=== PATIENT | female | born 1990 | race Caucasian/White ===

== ENCOUNTER 2019-11-12 09:54 | Outpatient (CLI) | payer MEDICAID ==
[2019-11-12 10:43] LABS: APPEARANCE,URINE SLIGHTLY-CLOUDY; BILIRUBIN,URINE NEGATIVE (NEGATIVE); COLOR,URINE YELLOW; GLUCOSE, URINE NEGATIVE (NEGATIVE); KETONES,URINE NEGATIVE (NEGATIVE); LEUKOCYTE ESTERASE,URINE MODERATE (NEGATIVE); NITRITE,URINE NEGATIVE (NEGATIVE); PROTEIN,URINE 30 mg/dL (NEGATIVE); URINE SPECIFIC GRAVITY 1.018; UROBILINOGEN,URINE NEGATIVE mg/dL (<2.0)
[2019-11-12 11:25] LABS: ABSOLUTE EOSINOPHILS # (AUTO) 0.1 10^3/uL (0.0-0.6); ABSOLUTE MONOCYTES (AUTO) 0.8 10^3/uL (0.1-1.4); ABSOLUTE NEUT (AUTO) 6.5 10^3/uL (1.7-8.2); BASOPHILS % (AUTO) 0.2 % (0-2); EOSINOPHILS % (AUTO) 0.8 % (0-6); HEMATOCRIT 30.9 % (36.0-47.0); HEMOGLOBIN 10.4 g/dL (12.0-15.5); LYMPHOCYTES % (AUTO) 12.4 % (13-45); MEAN CORPUSCULAR HEMOGLOBIN 29.6 pg (27.0-33.4); MEAN CORPUSCULAR HGB CONC 33.6 g/dL (32.0-36.0); MEAN CORPUSCULAR VOLUME 88 fl (80-97); MONOCYTES % (AUTO) 9.6 % (3-13); PLATELET COUNT 226 10^3/uL (150-450); RED BLOOD COUNT 3.52 10^6/uL (3.72-5.28); RED CELL DISTRIBUTION WIDTH 13.6 % (11.5-14.0); TOTAL CELLS COUNTED % (AUTO) 100 %; WHITE BLOOD COUNT 8.4 10^3/uL (4.0-10.5)
[2019-11-12 11:30] LABS: UR PRO/CREAT RATIO RESULT 0.1 mg/mg (0.0-0.2); URINE CREATININE 193.8 mg/dL (16-327); URINE PROTEIN 14.8 mg/dL (<12)
[2019-11-12 11:44] LABS: ALBUMIN 2.7 g/dL (3.5-5.0); ALKALINE PHOSPHATASE 95 U/L (38-126); ANION GAP 6 (5-19); ASPARTATE AMINO TRANSFERASE 17 U/L (14-36); BILIRUBIN,TOTAL 0.4 mg/dL (0.2-1.3); BLOOD UREA NITROGEN 5 mg/dL (7-20); CALCIUM 8.4 mg/dL (8.4-10.2); CARBON DIOXIDE 21 mmol/L (22-30); CHLORIDE 107 mmol/L (98-107); GLUCOSE 91 mg/dL (75-110); POTASSIUM 3.9 mmol/L (3.6-5.0); TOTAL PROTEIN 5.7 g/dL (6.3-8.2); URIC ACID 4.1 mg/dL (2.5-6.2)
[2019-11-12] MEDS ORDERED: LABETALOL HCL 200 MG TABLET PO ONE (11:45)
[2019-11-12] MEDS ORDERED: LABETALOL HCL 200 MG TABLET ONE (11:59)
--- NOTE | 2019-11-12 12:15 | Non Stress Test Report ---
Non Stress Test Datetime Report Generated by CPN: 11/12/2019 12:14 DEMOGRAPHIC EGA NST: 36.2 VITAL SIGNS Temperature - NST: 98.7 Pulse - NST: 94 RESP - NST: 18 NBPSYS NST: 149 NBPDIA NST: 90 MONITORING Monitor Explained: Monitor Explained; Test Explained; Patient Verbalized Understanding Time on Monitor: 11/12/2019 10:24 Time off Monitor: 11/12/2019 11:43 NST Duration: 79 NST INTERVENTIONS NST Interventions: PO Hydration Physician Notified NST: Dr. Mann BABY A: [id number] BABY A Movement : Present Contraction Frequency : 0 FHR Baseline : 145 (Annotations: Data stored by N on behalf of user) Accelerations : 15X15 Decelerations : None Variability : Moderate 6-25bpm NST Review: Meets Criteria for Reactive NST NST Review and Verified By : Linda Jim RN NST Results: Reactive NST COMMENTS NST Comments: Dr. Mann on unit and reviewed strip. NST REPORT Report Trigger: Send Report
[2019-11-12] MEDS ORDERED: HYDRALAZINE HCL INJ/PF 20 MG/1 ML SDV IV ONE (12:24)
[2019-11-12] MEDS ORDERED: HYDRALAZINE HCL INJ/PF 20 MG/1 ML SDV ONE (12:32)
[2019-11-12 13:56] LABS: URINE AMPHETAMINES SCREEN NEGATIVE; URINE BARBITURATES SCREEN NEGATIVE; URINE BENZODIAZEPINES SCREEN NEGATIVE; URINE COCAINE SCREEN NEGATIVE; URINE MARIJUANA (THC) SCREEN NEGATIVE; URINE METHADONE SCREEN NEGATIVE; URINE PHENCYCLIDINE SCREEN NEGATIVE
== END 2019-11-12 13:23 | disposition home or self-care (01) ==
LOC: LC 09:54
PROVIDERS: ATTEND Obstetrics & Gynecology
DX: O24.419 Gestational diabetes mellitus in pregnancy, unspecified control (principal); Z3A.36 36 weeks gestation of pregnancy
CPT/HCPCS: 59025; 36415; 83615; 84156; 84550; 82570; 85025; 80053; 81001; 80307; J0360; J3490

== ENCOUNTER 2019-11-14 14:36 | Outpatient (CLI) | payer MEDICAID ==
[2019-11-14 15:07] LABS: APPEARANCE,URINE CLEAR; BILIRUBIN,URINE NEGATIVE (NEGATIVE); COLOR,URINE STRAW; GLUCOSE, URINE NEGATIVE (NEGATIVE); KETONES,URINE NEGATIVE (NEGATIVE); LEUKOCYTE ESTERASE,URINE MODERATE (NEGATIVE); NITRITE,URINE NEGATIVE (NEGATIVE); PROTEIN,URINE NEGATIVE (NEGATIVE); URINE SPECIFIC GRAVITY 1.002; UROBILINOGEN,URINE NEGATIVE mg/dL (<2.0)
[2019-11-14 15:25] LABS: ABSOLUTE LYMPHOCYTES (AUTO) 1.1 10^3/uL (0.5-4.7); ABSOLUTE MONOCYTES (AUTO) 0.7 10^3/uL (0.1-1.4); ABSOLUTE NEUT (AUTO) 6.3 10^3/uL (1.7-8.2); BASOPHILS % (AUTO) 0.3 % (0-2); EOSINOPHILS % (AUTO) 0.6 % (0-6); HEMATOCRIT 31.2 % (36.0-47.0); HEMOGLOBIN 10.4 g/dL (12.0-15.5); LYMPHOCYTES % (AUTO) 13.8 % (13-45); MEAN CORPUSCULAR HEMOGLOBIN 29.4 pg (27.0-33.4); MEAN CORPUSCULAR HGB CONC 33.4 g/dL (32.0-36.0); MEAN CORPUSCULAR VOLUME 88 fl (80-97); PLATELET COUNT 230 10^3/uL (150-450); RED BLOOD COUNT 3.55 10^6/uL (3.72-5.28); RED CELL DISTRIBUTION WIDTH 13.5 % (11.5-14.0); SEGMENTED NEUTROPHILS % (AUTO) 77.3 % (42-78); TOTAL CELLS COUNTED % (AUTO) 100 %; WHITE BLOOD COUNT 8.2 10^3/uL (4.0-10.5)
[2019-11-14 15:39] LABS: URINE AMPHETAMINES SCREEN NEGATIVE; URINE BARBITURATES SCREEN NEGATIVE; URINE BENZODIAZEPINES SCREEN NEGATIVE; URINE COCAINE SCREEN NEGATIVE; URINE MARIJUANA (THC) SCREEN NEGATIVE; URINE METHADONE SCREEN NEGATIVE; URINE PHENCYCLIDINE SCREEN NEGATIVE
[2019-11-14 15:43] LABS: UR PRO/CREAT RATIO RESULT 1.1 mg/mg (0.0-0.2); URINE CREATININE 14.1 mg/dL (16-327); URINE PROTEIN 14.9 mg/dL (<12)
[2019-11-14 15:45] LABS: ALBUMIN 2.9 g/dL (3.5-5.0); ALKALINE PHOSPHATASE 97 U/L (38-126); ANION GAP 5 (5-19); ASPARTATE AMINO TRANSFERASE 18 U/L (14-36); BILIRUBIN,TOTAL 0.7 mg/dL (0.2-1.3); BLOOD UREA NITROGEN 5 mg/dL (7-20); CALCIUM 8.6 mg/dL (8.4-10.2); CARBON DIOXIDE 22 mmol/L (22-30); CHLORIDE 105 mmol/L (98-107); GLUCOSE 115 mg/dL (75-110); POTASSIUM 3.9 mmol/L (3.6-5.0); URIC ACID 4.4 mg/dL (2.5-6.2)
--- NOTE | 2019-11-14 16:30 | Non Stress Test Report ---
Non Stress Test Datetime Report Generated by CPN: 11/14/2019 16:29 DEMOGRAPHIC EGA NST: 36.4 VITAL SIGNS Temperature - NST: 98.3 Pulse - NST: 100 RESP - NST: 18 NBPSYS NST: 140 NBPDIA NST: 93 MONITORING Monitor Explained: Monitor Explained; Test Explained; Patient Verbalized Understanding Time on Monitor: 11/14/2019 15:00 Time off Monitor: 11/14/2019 15:34 NST Duration: 34 NST INTERVENTIONS NST Interventions: PO Hydration; Reposition Patient Physician Notified NST: David Muniz, CNMoris BABY A: [id number] BABY A Movement : Present Contraction Frequency : 0 FHR Baseline : 130 Accelerations : 15X15 Decelerations : None Variability : Moderate 6-25bpm NST Review: Meets Criteria for Reactive NST NST Review and Verified By : Linda Jim RN NST Results: Reactive NST REPORT Report Trigger: Send Report
== END 2019-11-14 16:17 | disposition home or self-care (01) ==
LOC: LC 14:36
PROVIDERS: ATTEND Obstetrics & Gynecology Gynecology
DX: O13.3 Gestational [pregnancy-induced] hypertension without significant proteinuria, third trimester (principal); Z3A.36 36 weeks gestation of pregnancy
CPT/HCPCS: 36415; 59025; 80053; 80307; 81001; 82570; 83615; 84156; 84550; 85025

== ENCOUNTER 2019-11-16 13:56 | Outpatient (CLI) | payer MEDICAID ==
--- NOTE | 2019-11-16 14:48 | Non Stress Test Report ---
Non Stress Test Datetime Report Generated by CPN: 11/16/2019 14:48 DEMOGRAPHIC Test Number: 3 EGA NST: 36.6 VITAL SIGNS Temperature - NST: 98.6 Pulse - NST: 97 RESP - NST: 15 NBPSYS NST: 141 NBPDIA NST: 88 MONITORING Monitor Explained: Monitor Explained; Test Explained; Patient Verbalized Understanding Time on Monitor: 11/16/2019 14:11 Time off Monitor: 11/16/2019 14:42 NST Duration: 31 NST INTERVENTIONS NST Interventions: PO Hydration Physician Notified NST: Dr. Mann BABY A: [id number] BABY A Movement : Present Contraction Frequency : none FHR Baseline : 140 Accelerations : 15X15 Decelerations : None Variability : Moderate 6-25bpm NST Review: Meets Criteria for Reactive NST NST Review and Verified By : TMartin,RN NST Results: Reactive NST COMMENTS NST Comments: MD on unit reviewing FHT strip NST REPORT Report Trigger: Send Report
== END 2019-11-16 15:09 | disposition home or self-care (01) ==
LOC: LC 13:56
PROVIDERS: ATTEND Obstetrics & Gynecology
DX: O13.3 Gestational [pregnancy-induced] hypertension without significant proteinuria, third trimester (principal); O24.410 Gestational diabetes mellitus in pregnancy, diet controlled; Z3A.36 36 weeks gestation of pregnancy
CPT/HCPCS: 59025

== ENCOUNTER 2019-11-18 05:11 | Inpatient (IN) | payer MEDICAID ==
[2019-11-13 11:20] LABS: ABSOLUTE EOSINOPHILS # (AUTO) 0.1 10^3/uL (0.0-0.6); ABSOLUTE LYMPHOCYTES (AUTO) 0.9 10^3/uL (0.5-4.7); ABSOLUTE MONOCYTES (AUTO) 0.7 10^3/uL (0.1-1.4); ABSOLUTE NEUT (AUTO) 5.7 10^3/uL (1.7-8.2); BASOPHILS % (AUTO) 0.4 % (0-2); HEMATOCRIT 32.2 % (36.0-47.0); HEMOGLOBIN 10.8 g/dL (12.0-15.5); LYMPHOCYTES % (AUTO) 12.7 % (13-45); MEAN CORPUSCULAR HEMOGLOBIN 29.2 pg (27.0-33.4); MEAN CORPUSCULAR HGB CONC 33.6 g/dL (32.0-36.0); MEAN CORPUSCULAR VOLUME 87 fl (80-97); MONOCYTES % (AUTO) 9.8 % (3-13); PLATELET COUNT 246 10^3/uL (150-450); RED CELL DISTRIBUTION WIDTH 13.3 % (11.5-14.0); SEGMENTED NEUTROPHILS % (AUTO) 76.1 % (42-78); TOTAL CELLS COUNTED % (AUTO) 100 %; WHITE BLOOD COUNT 7.5 10^3/uL (4.0-10.5)
[2019-11-13 11:20] LABS: APPEARANCE,URINE CLOUDY; BILIRUBIN,URINE NEGATIVE (NEGATIVE); COLOR,URINE YELLOW; GLUCOSE, URINE NEGATIVE (NEGATIVE); KETONES,URINE NEGATIVE (NEGATIVE); LEUKOCYTE ESTERASE,URINE LARGE (NEGATIVE); NITRITE,URINE NEGATIVE (NEGATIVE); PROTEIN,URINE 30 mg/dL (NEGATIVE); URINE SPECIFIC GRAVITY 1.013; UROBILINOGEN,URINE NEGATIVE mg/dL (<2.0)
[2019-11-13 11:37] LABS: URINE AMPHETAMINES SCREEN NEGATIVE; URINE BARBITURATES SCREEN NEGATIVE; URINE BENZODIAZEPINES SCREEN NEGATIVE; URINE COCAINE SCREEN NEGATIVE; URINE MARIJUANA (THC) SCREEN NEGATIVE; URINE METHADONE SCREEN NEGATIVE; URINE PHENCYCLIDINE SCREEN NEGATIVE
[~2019-11-18 05:11] MED LIST: CEFAZOLIN 2 GM/D5W RTU 2 GM/50 ML RTUPB IV PRN
[2019-11-18] MEDS ORDERED: RINGERS SOLUTION,LACTATED 1,000 ML IV ONE (06:00)
[2019-11-18] MEDS ORDERED: OXYTOCIN 10 UNIT/ML VIAL ONE ×2 (07:31→08:24)
[2019-11-18] MEDS ORDERED: PHENYLEPHRINE HCL INJ/PF 10 MG/1 ML SDV ONE (07:31)
[2019-11-18] MEDS ORDERED: GLYCOPYRROLATE INJ 0.4 MG/2 ML VIAL ONE (07:31)
[2019-11-18] MEDS ORDERED: KETOROLAC TROMETHAMINE 60 MG/2 ML SDV ONE (07:31)
[2019-11-18] MEDS ORDERED: MIDAZOLAM 2 MG/2 ML INJ ONE (07:31)
[2019-11-18] MEDS ORDERED: FENTANYL CITRATE INJ/PF 100 MCG/2 ML AMPUL ONE (07:31)
[2019-11-18] MEDS ORDERED: OXYTOCIN/0.9 % SODIUM CHLORIDE 30 UNIT/500 ML RTUINJ ONE (07:32)
[2019-11-18] MEDS ORDERED: ACETAMINOPHEN 1,000 MG/100 ML RTUPB IV ONE (07:32)
[2019-11-18] MEDS ORDERED: ONDANSETRON HCL INJ/PF 4 MG/2 ML SDV ONE (07:32)
[2019-11-18] MEDS ORDERED: HYDRALAZINE HCL INJ/PF 20 MG/1 ML SDV IV ONE ×2 (08:00→10:01)
[2019-11-18] MEDS ORDERED: MISOPROSTOL 0.2 MG TABLET ONE (08:24)
[2019-11-18] MEDS ORDERED: PROMETHAZINE HCL INJ 25 MG/1 ML VIAL IV PRN ×3 (08:28→09:24)
[2019-11-18] MEDS ORDERED: FENTANYL CITRATE INJ/PF 100 MCG/2 ML AMPUL IV PRN ×3 (08:28)
[2019-11-18] MEDS ORDERED: DIPHENHYDRAMINE HCL 50 MG/ML VIAL IV PRN (08:28)
[2019-11-18] MEDS ORDERED: OXYCODONE-ACETAMINOPHEN 5-325 MG TABLET PO PRN ×3 (08:28→09:24)
[2019-11-18] MEDS ORDERED: MORPHINE SULFATE 10 MG/ML INJ IV PRN (08:28)
[2019-11-18] MEDS ORDERED: BUPIVACAINE HCL 0.25 % INJ/PF (2.5 MG/1 ML) 30 ML VIAL ONE (08:50)
[2019-11-18] MEDS ORDERED: RINGERS SOLUTION,LACTATED 1,000 ML IV PRN (09:24)
[2019-11-18] MEDS ORDERED: OXYTOCIN/0.9 % SODIUM CHLORIDE 30 UNIT/500 ML RTUINJ IV PRN (09:24)
[2019-11-18] MEDS ORDERED: MEASLES,MUMPS&RUBELLA VACC/PF 0.5 ML VIAL SUBCUT PRN (09:24)
[2019-11-18] MEDS ORDERED: DIPH/PERTUSS(ACELL)/TETANUS VAC/PF 0.5 ML SYR (>=10YO) IM PRN (09:24)
[2019-11-18] MEDS ORDERED: ACETAMINOPHEN 1,000 MG/100 ML RTUPB IV PRN (09:24)
[2019-11-18] MEDS ORDERED: ACETAMINOPHEN 325 MG TABLET PO PRN (09:24)
[2019-11-18] MEDS ORDERED: HYDROMORPHONE HCL INJ/PF 2 MG/ML AMPULE IV PRN (09:24)
[2019-11-18] MEDS ORDERED: SIMETHICONE 80 MG TAB.CHEW PO PRN (09:24)
[2019-11-18] MEDS ORDERED: MEPERIDINE HCL/PF INJ 25 MG/1 ML DISP.SYRIN ONE (09:27)
[2019-11-18] MEDS: MEPERIDINE HCL/PF INJ 25 MG/1 ML DISP.SYRIN IV PRN ×2 (09:36→09:54)
--- NOTE | 2019-11-18 09:44 | Brief Operative Note ---
BRIEF OPERATIVE REPORT DATE OF SURGERY: 11/18/19 TIME OF SURGERY: 08:00 PREOPERATIVE DIAGNOSIS: H/o section, CHTN on medication with superimposed preE, hypertrophic scar, GDM. Limited care. POSTOPERATIVE DIAGNOSIS: RANDY - delivered SURGEON: KESHAV SHELDON FINDINGS: Apgars 8/9, weight 7#4oz, time of 0820. normal bilateral tubes and ovaries, normal uterus but boggy after delivery. IV pitocin doubled and then cytotec 1000mcg given. IVF 600ml, UOP 200ml, EBL 600ml, QBL 685ml COMPLICATIONS: mild uterine atony responsive to medications ESTIMATED BLOOD LOSS: 600 TISSUE REMOVED OR ALTERED: placenta and cord not sent to pathology TECHNICAL PROCEDURE: Repeat section, Scar revision.
[2019-11-18] MEDS ORDERED: LABETALOL HCL 200 MG TABLET PO SCH (10:00)
[2019-11-18] MEDS ORDERED: LABETALOL HCL 200 MG TABLET ONE (10:01)
[2019-11-18] MEDS ORDERED: HYDRALAZINE HCL INJ/PF 20 MG/1 ML SDV ONE (10:01)
[2019-11-18] MEDS: DOCUSATE SODIUM 100 MG CAPSULE PO SCH ×2 (11:41→17:19)
[2019-11-18] MEDS: PRENATAL VITAMIN W DHA CAPSULE PO SCH (11:41)
[2019-11-18] MEDS ORDERED: KETOROLAC TROMETHAMINE INJ/PF 30 MG/1 ML SDV IV SCH (14:00)
[2019-11-18] MEDS ORDERED: LABETALOL HCL 200 MG TABLET PO ONE (15:21)
[2019-11-18] MEDS: KETOROLAC TROMETHAMINE INJ/PF 30 MG/1 ML SDV IV SCH (17:19)
[2019-11-18] MEDS: OXYCODONE-ACETAMINOPHEN 5-325 MG TABLET PO PRN (19:22)
[2019-11-18] MEDS: LABETALOL HCL 200 MG TABLET PO SCH (21:59)
[2019-11-19] MEDS: KETOROLAC TROMETHAMINE INJ/PF 30 MG/1 ML SDV IV SCH (01:06)
[2019-11-19] MEDS: OXYCODONE-ACETAMINOPHEN 5-325 MG TABLET PO PRN ×3 (04:14→18:48)
[2019-11-19] MEDS: LABETALOL HCL 200 MG TABLET PO SCH ×3 (05:00→21:15)
--- NOTE | 2019-11-19 08:44 | PDOC PROGRESS REPORT ---
Subjective-OB Progress Note for:: 11/05/19 Subjective: HAving afterbirth pains, incisional pain moderate, hsb and baby at BS crying, eating, feeling gas, OOB to BR, Physical Exam (OB) Vital Signs: Temp Pulse Resp BP Pulse Ox 98.2 F 96 16 153/87 H 99 11/19/19 07:15 11/19/19 07:15 11/19/19 07:15 11/19/19 07:15 11/19/19 07:15 Intake & Output 11/18/19 11/19/19 11/20/19 06:59 06:59 06:59 Intake Total 1700 Output Total 1425 Balance 275 Weight 217 kg - PIH/Pre-Eclampsia DTR's: 2 + Clonus: Negative Headache: Absent Epigastric Pain: No Visual Changes: No - Dressing Removed: No Incision: Dressing - Lochia Lochia Amount: Scant < 10 ml Lochia Color: Rubra/Red - Abdomen Description: Soft, Round Hernia Present: No Fundal Description: Firm, Midline Fundal Height: u/u - u/2 Assessment and Plan(PN) - Assessment and Plan (1) delivery delivered Is this a current diagnosis for this admission?: Yes - Time Spent with Patient Time with patient: Less than 15 minutes Medications reviewed and adjusted accordingly: Yes - Disposition Anticipated Discharge: Home Within: within 24 hours
[2019-11-19 08:55] LABS: HEMATOCRIT 25.5 % (36.0-47.0); HEMOGLOBIN 8.6 g/dL (12.0-15.5); MEAN CORPUSCULAR HEMOGLOBIN 29.2 pg (27.0-33.4); MEAN CORPUSCULAR HGB CONC 33.9 g/dL (32.0-36.0); MEAN CORPUSCULAR VOLUME 86 fl (80-97); PLATELET COUNT 213 10^3/uL (150-450); RED BLOOD COUNT 2.96 10^6/uL (3.72-5.28); RED CELL DISTRIBUTION WIDTH 13.4 % (11.5-14.0); WHITE BLOOD COUNT 10.3 10^3/uL (4.0-10.5)
[2019-11-19] MEDS: IBUPROFEN 800 MG TABLET PO SCH ×3 (09:27→21:16)
[2019-11-19] MEDS: PRENATAL VITAMIN W DHA CAPSULE PO SCH (09:27)
[2019-11-19] MEDS: DOCUSATE SODIUM 100 MG CAPSULE PO SCH ×2 (09:28→18:45)
--- NOTE | 2019-11-19 09:47 | Operative Report ---
Operative Report DATE OF SURGERY: 11/18/19 PREOPERATIVE DIAGNOSIS: H/o section, CHTN on medication with superimpo sed preE, hypertrophic scar, GDM. Limited care, 37.1ega POSTOPERATIVE DIAGNOSIS: RNADY - delivered OPERATION: Repeat section, scar revision SURGEON: KESHAV SHELDON ANESTHESIA: Spinal TISSUE REMOVED OR ALTERED: placenta and cord not sent to pathology COMPLICATIONS: mild uterine atony responsive to medications ESTIMATED BLOOD LOSS: 600 QUANTITATIVE BLOOD LOSS: 685 INTRAOPERATIVE FINDINGS: Apgars 8/9, weight 7#4oz, time of 0820. normal bilateral tubes and ovaries, normal uterus but boggy after delivery. IV pitocin doubled and then cytotec 1000mcg given. IVF 600ml, UOP 200ml, EBL 600ml, QBL 685ml PROCEDURE: Anesthesia provider: [Jacky Tristan CRNA, Dr Medley] Urine output: [200ml] IV fluids: [600ml] Indications: [29yo at 37+1ega presents for scheduled Repeat section. She has limited PNC and newly diagnosed GDM. Her was complicated by CHTN with superimposed PreE. She desires to proceed with planned repeat section. The risks, benefits, alternatives were reviewed and she desires to proceed with planned procedure.] Procedure: The patient was taken to the operating room where spinal anesthesia was obtained and found to be adequate. She was then prepped and draped in the normal sterile fashion and placed in the dorsal supine position with a leftward tilt. A Pfannenstiel skin incision was then made and carried through to the underlying layers of the fascia with the scalpel. The fascia was incised in the midline and the incision extended laterally with the Pope scissors. The superior aspect of the fascial incision was then grasped with Emerald clamps elevated and the underlying rectus muscles dissected off [bluntly]. Attention was then turned to the inferior aspect of the fascial incision which in a similar fashion was grasped, tented up with Emerald clamps, and the rectus muscles dissected off [bluntly]. The rectus muscles were then in the midline and the peritoneum at the amount identified and entered [bluntly]. The peritoneal incision was then extended superiorly and inferiorly with good visualization of the bladder. The bladder blade was inserted and the vesicouterine peritoneum identified grasped with Montenegrin pickups and entered sharply with the Metzenbaum scissors. This incision was then extended laterally with the Metzenbaum scissors and a bladder flap created digitally. The bladder blade was then reinserted and the lower uterine segment incised in a transverse fashion with the scalpel. The uterine incision was then extended bluntly. The bladder blade was removed and the infant's head was delivered from cephalic presentation atraumatically. The nose and mouth were suctioned and the cord doubly clamped and cut. And the was handed off to waiting pediatricians. The placenta was then delivered spontaneously and the uterus exteriorized and cleared of all clots and debris. The uterine incision was then repaired with 1- 0 Vicryl in a running locked fashion. A second layer of the same suture was used to obtain hemostasis via imbrication of the initial layer. The bladder flap was then repaired with 3-0 chromic in a running fashion. The uterus was returned to the patient's abdomen. The gutters were cleared of all clots and debris. All operative sites were noted to be hemostatic after surgicel application. The fascia was reapproximated with 0 Vicryl in a running fashion from each lateral edge to the midline. The skin was closed with 3-0 Monocryl in a running subcuticular fashion with overlying Dermabond for additional dressing as well as wound closure. The patient tolerated the procedure well. Sponge lap needle and instrument counts are correct times 2. 2 g of Ancef were given prior to skin incision. The patient was taken to the recovery area awake and in stable condition.
[2019-11-19] MEDS ORDERED: IBUPROFEN 800 MG TABLET PO SCH (15:00)
[2019-11-20] MEDS: IBUPROFEN 800 MG TABLET PO SCH ×3 (02:32→14:57)
[2019-11-20] MEDS: LABETALOL HCL 200 MG TABLET PO SCH ×2 (06:11→13:03)
[2019-11-20] MEDS: OXYCODONE-ACETAMINOPHEN 5-325 MG TABLET PO PRN ×2 (06:11→13:03)
[2019-11-20] MEDS: DOCUSATE SODIUM 100 MG CAPSULE PO SCH (09:14)
[2019-11-20] MEDS: PRENATAL VITAMIN W DHA CAPSULE PO SCH (09:14)
--- NOTE | 2019-11-20 13:25 | PDOC DISCHARGE SUMMARY ---
Impression - Admit/DC Date/PCP Admission Date/Primary Care Provider: 11/18/19 05:11 CATALINA MAKI MD Discharge Date: 11/20/19 - Discharge Diagnosis (1) delivery delivered Is this a current diagnosis for this admission?: Yes (2) Hypertension affecting , delivered, current hospitalization Is this a current diagnosis for this admission?: Yes - Additional Information Resuscitation Status: Full Code Discharge Diet: Regular Discharge Activity: Balance Activity w/Rest, No Lifting Over 10 Pounds, No Lifting/Push/Pulling, Pelvic Rest, No tub bath Referrals: KESHAV SHELDON MD [ACTIVE STAFF] - 11/20/19 9:00 am (CALL THE OFFICE OF ANY QUESTIONS OR CONCERNS.) Prescriptions: Oxycodone HCl/Acetaminophen [Percocet 5-325 mg Tablet] 1 tab PO Q4HP PRN #30 tablet PRN Reason: For Pain Scale 3-4 Ibuprofen [Motrin 800 mg Tablet] 800 mg PO Q8HP PRN #60 tablet PRN Reason: Labetalol HCl [Normodyne 200 mg Tablet] 200 mg PO Q8 #90 tablet Home Medications: Pnv No.103/Folic/Om3s/Fish Oil [ Gummies] 1 tab PO DAILY 11/12/19 Ibuprofen [Motrin 800 mg Tablet] 800 mg PO Q8HP PRN #60 tablet 11/20/19 Labetalol HCl [Normodyne 200 mg Tablet] 200 mg PO Q8 #90 tablet 11/20/19 Oxycodone HCl/Acetaminophen [Percocet 5-325 mg Tablet] 1 tab PO Q4HP PRN #30 tablet 11/20/19 HPI Reason(s) for Admission: Ceasarean Section-Repeat Procedures: None Intrapartum Procedure(s): : Low Cervical, Transverse Results Laboratory Results: WBC 10.3 10^3/uL (4.0-10.5) 11/19/19 08:30 RBC 2.96 10^6/uL (3.72-5.28) L 11/19/19 08:30 Hgb 8.6 g/dL (12.0-15.5) L 11/19/19 08:30 Hct 25.5 % (36.0-47.0) L 11/19/19 08:30 MCV 86 fl (80-97) 11/19/19 08:30 MCH 29.2 pg (27.0-33.4) 11/19/19 08:30 MCHC 33.9 g/dL (32.0-36.0) 11/19/19 08:30 RDW 13.4 % (11.5-14.0) 11/19/19 08:30 Plt Count 213 10^3/uL (150-450) 11/19/19 08:30 Lymph % (Auto) 12.7 % (13-45) L 11/13/19 10:22 [place] % (Auto) 9.8 % (3-13) 11/13/19 10:22 Eos % (Auto) 1.0 % (0-6) 11/13/19 10:22 Baso % (Auto) 0.4 % (0-2) 11/13/19 10:22 Absolute Neuts (auto) 5.7 10^3/uL (1.7-8.2) 11/13/19 10:22 Absolute Lymphs (auto) 0.9 10^3/uL (0.5-4.7) 11/13/19 10:22 Absolute Monos (auto) 0.7 10^3/uL (0.1-1.4) 11/13/19 10:22 Absolute Eos (auto) 0.1 10^3/uL (0.0-0.6) 11/13/19 10:22 Absolute Basos (auto) 0.0 10^3/uL (0.0-0.2) 11/13/19 10:22 Seg Neutrophils % 76.1 % (42-78) 11/13/19 10:22 POC Glucose 84 mg/dL (70-110) 11/18/19 06:53 Urine Color YELLOW 11/13/19 10:12 Urine Appearance CLOUDY 11/13/19 10:12 Urine pH 6.0 (5.0-9.0) 11/13/19 10:12 Ur Specific [place] 1.013 11/13/19 10:12 Urine Protein 30 mg/dL (NEGATIVE) H 11/13/19 10:12 Urine Glucose (UA) NEGATIVE mg/dL (NEGATIVE) 11/13/19 10:12 Urine Ketones NEGATIVE mg/dL (NEGATIVE) 11/13/19 10:12 Urine Blood SMALL (NEGATIVE) H 11/13/19 10:12 Urine Nitrite NEGATIVE (NEGATIVE) 11/13/19 10:12 Urine Bilirubin NEGATIVE (NEGATIVE) 11/13/19 10:12 Urine Urobilinogen NEGATIVE mg/dL (<2.0) 11/13/19 10:12 Ur Leukocyte Esterase LARGE (NEGATIVE) H 11/13/19 10:12 Urine WBC (Auto) 15 /HPF 11/13/19 10:12 Urine RBC (Auto) 6 /HPF 11/13/19 10:12 Urine Bacteria (Auto) 1+ /HPF 11/13/19 10:12 Squamous Epi Cells Auto 46 /HPF 11/13/19 10:12 Urine Mucus (Auto) FEW /LPF 11/13/19 10:12 Urine Ascorbic Acid NEGATIVE (NEGATIVE) 11/13/19 10:12 Urine Opiates Screen NEGATIVE 11/13/19 10:12 Urine Methadone Screen NEGATIVE 11/13/19 10:12 Ur Barbiturates Screen NEGATIVE 11/13/19 10:12 Ur Phencyclidine Scrn NEGATIVE 11/13/19 10:12 Ur Amphetamines Screen NEGATIVE 11/13/19 10:12 U Benzodiazepines Scrn NEGATIVE 11/13/19 10:12 Urine Cocaine Screen NEGATIVE 11/13/19 10:12 U Marijuana (THC) Screen NEGATIVE 11/13/19 10:12 COVID-19 Source NASOPHARYNGEAL 11/13/19 10:23 COVID-19 (VI) NOT DETECTED 11/13/19 10:23 Blood Type O POSITIVE 11/17/19 13:14 Antibody Screen NEGATIVE 11/17/19 13:14 Plan Plan of Treatment: f/u at [facility] in 1 wk for BP and incision check Time Spent: Less than 30 Minutes
[2019-11-20 13:50] VITALS: BP 126/77
--- NOTE | 2019-11-21 11:51 | Delivery Summary ---
Del Sum A-C Datetime Report Generated by CPN: 11/21/2019 11:51 DELIVERY PERSONNEL DELIVERY PERSONNEL: [id number] Delivery Doctor:: Trinity Chappell MD CUSTODIAL MANAGER:: Jacky Tristan CRNA Labor and Delivery Nurse:: Isaura Flores RNcommunity relations director Nurse:: Johnathon Mello RN Night Time Babysitter:: Isaura Flores RN Neonatal Nurse Practitioner:: OLIVIA Abdalla Nursery Nurse:: Silvana Pickard RN Harmonica Maker/SPECIFICATION CONSULTANT: Gina Taveras, PRINCIPAL AUTOMATION ENGINEER Harmonica Maker/SPECIFICATION CONSULTANT: Olga Todd ST MATERNAL INFORMATION Delivery Anesthesia: Spinal Medications After Delivery: Pitocin 30 Units in 500ml NS/D5W Delivery QBL: 685 Maternal Complications: None LABOR SUMMARY EDC: 12/08/2019 00:00 STAGES OF LABOR Stage 3 hr: 0 Stage 3 min: 1 CSECTION DELIVERY CSection Incision: Lower Uterine Transverse BABY A INFORMATION Infant Delivery Date/Time: 11/18/2019 08:20 Method of Delivery: Nurse Controlled Delivery: No Born in Route : No : N/A Forceps: N/A Vacuum Extraction: N/A Shoulder Dystocia : No PRESENTATION/POSITION BABY A Presentation: Cephalic Breech Presentation: N/A PLACENTA INFORMATION BABY A Placenta Delivery Time : 11/18/2019 08:21 Placenta Method of Delivery: Manual Removal Placenta Status: Delivered INFANT INFORMATION BABY A Gestational Age at Delivery: 37.1 Gestational Status: Early Term- 37- 38.6 Weeks Outcome : Liveborn Condition : Stable Sex: Male CORD INFORMATION BABY A No. Cord Vessels: 3 Nuchal Cord : N/A Cord Blood Taken: Yes-For Eval (Mom's Blood Type - or O+) Suction: Mouth; Nose ASSESSMENT BABY A Skin to Skin: Yes Skin to Skin: Yes
== END 2019-11-20 16:47 | disposition home or self-care (01) | DRG 788 ==
LOC: 2S 05:11
PROVIDERS: ADMIT Obstetrics & Gynecology Gynecology; ATTEND Obstetrics & Gynecology Gynecology
PROC: 10D00Z1 Extraction of Products of Conception, Low, Open Approach (ICD-10-PCS; principal; 2019-11-18)
DX: O11.4 Pre-existing hypertension with pre-eclampsia, complicating childbirth (principal); O34.211 Maternal care for low transverse scar from previous cesarean delivery; O10.92 Unspecified pre-existing hypertension complicating childbirth; O24.420 Gestational diabetes mellitus in childbirth, diet controlled; Z3A.37 37 weeks gestation of pregnancy; Z37.0 Single live birth
CPT/HCPCS: 1961; 36415; 59025; 64450; 76942; 80307; 81001; 82962; 85025; 85027; 86850; 86900; 86901; 87635; 94799; C9803; J0131; J0360; J0690; J1170; J1885; J2175; J2250; J2370; J2405; J2550; J2590; J3010; J3490; J7120